=== PATIENT | male | born 1940 | race Caucasian/White ===

== ENCOUNTER 2019-09-27 18:47 | Inpatient (IN) | payer OTHER ==
[~2019-09-27] VITALS: Ht 160 cm; Wt 63.5 kg
[2019-09-27] MEDS: NACL 0.9% 1,000 ML IV SCH (01:30)
--- NOTE | 2019-09-27 18:49 | NUR ---
Pt placed in bed 8 by EMS.
[2019-09-27] MEDS ORDERED: NACL 0.9% 500 ML IV SCH (19:07)
--- NOTE | 2019-09-27 19:10 | NUR ---
Dr. Hartman examining patient.
[2019-09-27] MEDS ORDERED: ACETAMINOPHEN 650 MG SUPP RC ONE ×2 (19:15→19:17)
--- NOTE | 2019-09-27 19:39 | NUR ---
79 Y.O MALE BIBA W C/O GEN WEAKNESS & LOSS OF APPETITE X3 DAYS FROM [facility]. PATIENT IS A/OX2 AND AND RESPONSIVE TO VOICE. PERRLA +2. PATIENT STATES THAT HE HAS NO PAIN AT THIS TIME. BREATHING IS UNLABORED AND SYMMETRICAL. WILL CONTINUE TO TO MONITOR. PLACED ON MONITOR. SIDE RAILSX1. ERMD MADE AWARE OF STATUS HX: DEMENTIA RX: SEE MED REC
[2019-09-27 19:48] LABS: HEMOGLOBIN 9.5 g/dL (12.0-18.0); MEAN CORPUSCULAR HEMOGLOBIN 27 pg (27-31); MEAN CORPUSCULAR HGB CONC 31 g/dL (33-37); MEAN CORPUSCULAR VOLUME 88.4 fL (80-94); PLATELET COUNT (AUTO) 374 K/uL (140-450); WHITE BLOOD COUNT (AUTO) 23.1 K/uL (4.8-10.8)
[2019-09-27 20:04] LABS: PROTHROMBIN TIME 14.4 secs (10.8-13.4)
[2019-09-27 20:07] LABS: ALBUMIN 1.3 g/dL (3.4-5.0); ASPARTATE AMINOTRANSFERASE 28 U/L (15-37); CHLORIDE 107 mmol/L (98-107); GLUCOSE 89 mg/dL (74-106); SODIUM SERUM 141 mmol/L (136-145); UREA NITROGEN, BLOOD 14 mg/dL (7-18)
[2019-09-27] MEDS ORDERED: POTASSIUM CHLORIDE 20% 40 MEQ/15 ML UDC PO ONE (20:20)
[2019-09-27] MEDS ORDERED: PIPERACILLIN/TAZOBACTAM 3.375 GM in DEXTROSE 5% 50 ML IV ONE (20:20)
[2019-09-27 20:36] LABS: BASOPHILS % (MANUAL) 0 % (0-2); EOSINOPHILS % (MANUAL) 0 % (0-4); LYMPHOCYTES % (MANUAL) 4 % (20-46); MONOCYTES % (MANUAL) 6 % (5-12)
[2019-09-27] MEDS ORDERED: PIPERACILLIN/TAZOBACTAM 3.375 GM VIAL IV ONE (20:37)
[2019-09-27] MEDS ORDERED: LEVOFLOXACIN 500 MG/D5W PREMIX 100 ML IV ONE (20:40)
[2019-09-27 21:25] LABS: BILIRUBIN,URINE 1+ (NEGATIVE); BLOOD, URINE NEGATIVE (NEGATIVE); LEUKOCYTE ESTERASE ,URINE NEGATIVE (NEGATIVE); NITRITE, URINE NEGATIVE (NEGATIVE); UGLUCOSE NEGATIVE (NEGATIVE)
[2019-09-27 21:47] LABS: APPEARANCE,URINE CLEAR (CLEAR); COLOR,URINE AMBER (YELLOW)
[2019-09-27] MEDS ORDERED: BISA5TAB79 PO (22:46)
[2019-09-27] MEDS ORDERED: ACET-2619 PO (22:47)
--- NOTE | 2019-09-27 22:52 | NUR ---
SPOKE WITH SON JASIEL; UPDATED HIM OF PT,'S CONDITION. PH# [phone].
--- NOTE | 2019-09-27 23:00 | NUR ---
Patient will be admitted to care of [facility] . Admited to TELE. Will go to room 108 B. Belongings list completed. Report to .
[2019-09-27 23:30] VITALS: BP 101/53
--- NOTE | 2019-09-27 23:30 | NUR ---
REPORT RECEIVED FROM ED NURSE AT BEDSIDE. PT IN STABLE CONDITION. AAOX1-2. INTRODUCED SELF TO PT. BOARD UPDATED. NO COMPLAINTS OF PAIN. NO SOB. AFEBRILE. PT IS NON-AMBULATORY. MRSA COLLECTED. IV SITE L HAND 22G RUNNING NS BOLUS PATENT AND INTACT. SKIN WARM, DRY, AND INTACT WITH NO OPEN WOUNDS. BED LOCKED IN LOW POSITION. CALL GAMBLE WITHIN REACH. SAFETY PRECAUTION IN PLACE. ALL NEEDS MET AT THIS TIME.
[2019-09-27] MEDS ORDERED: LORazepam 2 MG/ML VIAL IM/IVP PRN (23:45)
[2019-09-27] MEDS ORDERED: ACETAMINOPHEN 325 MG TAB PO PRN (23:45)
[2019-09-27] MEDS ORDERED: ONDANSETRON 4 MG/2 ML VIAL IM/IVP PRN (23:45)
[2019-09-27] MEDS ORDERED: HYDROcodone/APAP 5/325 MG 1 TAB TAB PO PRN (23:45)
[2019-09-27] MEDS ORDERED: ZOLPIDEM 5 MG TAB PO PRN (23:45)
[2019-09-27] MEDS ORDERED: DOCUSATE SODIUM 100 MG GELCAP PO PRN (23:45)
[2019-09-28] VITALS: BP 107/61
[2019-09-28 00:17] LABS: CHOL/HDL RATIO 3.9 (1-4.5); PHOSPHORUS 3.7 mg/dL (2.5-4.9); THYROID STIMULATING HORMONE 2.3 uIU/mL (0.34-3.74)
--- NOTE | 2019-09-28 00:30 | NUR ---
PT SITTING IN BED. NO S/S OF DISTRESS NOTED. WILL CONTINUE TO MONITOR.
[2019-09-28] MEDS: NACL 0.9% 1,000 ML IV SCH ×2 (01:27→16:23)
--- NOTE | 2019-09-28 02:30 | NUR ---
PT SLEEPING COMFORTABLY BUT AROUSABLE. PT CONFUSED AND CONTINUOUSLY REMOVES TELE BOX. WILL TRY TO KEEP IT ON HIM. WILL CONTINUE TO MONITOR.
[2019-09-28] MEDS ORDERED: INSULIN LISPRO SLIDING SCALE 100 UNITS/ML VIAL SUBQ PRN (03:00)
[2019-09-28] MEDS ORDERED: DEXTROSE 50% 50 ML SYR IVP PRN (03:00)
--- NOTE | 2019-09-28 03:35 | NUR ---
PT SLEEPING COMFORTABLY BUT AROUSABLE. NO S/S OF DISTRESS NOTED. NO COMPLAINTS OF PAIN. NO SOB. AFEBRILE. WILL CONTINUE TO MONITOR.
[2019-09-28 04:00] VITALS: BP 108/51
[2019-09-28] MEDS ORDERED: PIPERACILLIN/TAZOBACTAM 3.375 GM VIAL IV ONE (05:36)
[2019-09-28] MEDS: PIPERACILLIN/TAZOBACTAM 3.375 GM in DEXTROSE 5% 50 ML IV SCH ×4 (05:59→23:17)
[2019-09-28] MEDS: BLOOD GLUCOSE MONITORING 1 DEV DEV FS SCH ×4 (05:59→20:23)
--- NOTE | 2019-09-28 05:59 | NUR ---
POTASSIUM GIVEN PO. ZOSYN HUNG AND RUNNING. PT TOLERATING WELL. BS 65. NO INSULIN COVERAGE NEEDED. JUICE GIVEN TO INCREASE BLOOD SUGAR.
[2019-09-28] MEDS ORDERED: POTASSIUM CHLORIDE 10 MEQ TABER PO SCH (06:00)
--- NOTE | 2019-09-28 06:25 | NUR ---
PT SLEEPING COMFORTABLY BUT AROUSABLE. NO S/S OF DISTRESS NOTED. PT IN STABLE CONDITION.
[2019-09-28 06:43] LABS: BASOPHILS # (AUTO) 0.1 K/uL (0.00-0.22); BASOPHILS % (AUTO) 0.2 % (0.0-2.0); EOSINOPHILS % (AUTO) 0.1 % (0.0-4.0); HEMATOCRIT 29.8 % (36-52); HEMOGLOBIN 8.8 g/dL (12.0-18.0); LYMPHOCYTES # (AUTO) 0.5 K/uL (2.0-11.5); MEAN CORPUSCULAR HEMOGLOBIN 27 pg (27-31); MEAN CORPUSCULAR HGB CONC 30 g/dL (33-37); MEAN CORPUSCULAR VOLUME 89.3 fL (80-94); MONOCYTES # (AUTO) 1.3 K/uL (0.8-1.0); MONOCYTES % (AUTO) 5.5 % (1.7-9.3); NEUTROPHILS # (AUTO) 20.9 K/uL (1.8-7.7); NEUTROPHILS % (AUTO) 92.2 % (42.2-75.2); PLATELET COUNT (AUTO) 343 K/uL (140-450); RED BLOOD CELL COUNT(AUTO) 3.34 MIL/uL (4.20-6.10); RED CELL DISTRIBUTION WIDTH 18.1 % (11.6-13.7); WHITE BLOOD COUNT (AUTO) 22.7 K/uL (4.8-10.8)
[2019-09-28 07:14] LABS: ANION GAP 12.6 (8-16); CARBON DIOXIDE 24.8 mmol/L (21-32); CHLORIDE 109 mmol/L (98-107); CREATININE 0.8 mg/dL (0.7-1.3); GLUCOSE 85 mg/dL (74-106); POTASSIUM 3.4 mmol/L (3.5-5.1); SODIUM SERUM 143 mmol/L (136-145); UREA NITROGEN, BLOOD 13 mg/dL (7-18)
--- NOTE | 2019-09-28 07:30 | NUR ---
Received report from head silverman nurse. Pt is in bed in stable condition. Call light in reach.
[2019-09-28 08:00] VITALS: BP 112/62
--- NOTE | 2019-09-28 08:00 | NUR ---
PATIENT HAS BEEN SCREENED AND CATEGORIZED HIGH NUTRITION RISK. PATIENT WILL BE SEEN WITHIN 1-2 DAYS OF ADMISSION. 09/28/19-09/29/[address]
--- NOTE | 2019-09-28 08:30 | NUR ---
Pt removed IV line. On assessment IV catheter intact. No active signs of bleeding. Pt lying in bed. Bed alarm in place.
--- NOTE | 2019-09-28 08:55 | NUR ---
SPOKE WITH RENÉE, PICC LINE SERVICE. NADYA-VIV PICC LINE WILL CALL FOR ETA. BRADLY- VIV ASSIGNED MADE AWARE.
[2019-09-28] MEDS ORDERED: BISACODYL 5 MG TABEC PO PRN (09:00)
[2019-09-28] MEDS: LACTOBACILLUS RHAMNOSUS GG 1 EACH CAP PO SCH (09:22)
--- NOTE | 2019-09-28 10:30 | NUR ---
Pt is in bed. Pt's is by bedside. Pt is in stable condition. Call light in reach.
--- NOTE | 2019-09-28 11:30 | NUR ---
Pt had an PICC line inserted to right upper arm. Procedure tolerated well.
[2019-09-28 12:00] VITALS: BP 106/40
--- NOTE | 2019-09-28 12:30 | NUR ---
Pt is in bed resting. Pt is on restrains. Checked restrains. Removed restrain for five minutes to check for circulation and skin assessment. Call light in reach.
--- NOTE | 2019-09-28 12:35 | NUR ---
DC PLANNIN79 Y/O MALE PATIENT FROM ([facility]) ADMITTED DUE TO FAILURE TO THRIVE X3DAYS. 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 ON ROOM AIR. ON ZOSYN AND HEPARIN SUB Q. PICC LINE TO UPPER RIGHT ARM INSERTED TODAY. DC PLAN PENDING ON PATIENT'S RESPONSE TO TREATMENT. Addendum: 09/30/19 at 1132 by Cherelle Martel CM MET WITH THE PATIENT AND HIS AT THE BEDSIDE TOGETHER WITH VIV URIARTE LOGGER ALL ROUND REGARDING TENTATIVE PLAN TO DC PATIENT BACK TO [facility], BOTH ARE AGREEABLE. Addendum: 09/30/19 at 1644 by Cherelle Martel CM CONTACTED MAURICIO YOST AT [phone], NO ANSWER. LEFT MESSAGE. Addendum: 10/03/19 at 1621 by Terri Reeder CM DC PLANNING PER MD ORDER WAITING FOR [facility] TO SEE THE PATIENT. CALLED SHARDA [phone] LEFT A MESSAGE CM TO FOLLOW Addendum: 10/03/19 at 1642 by Terri Reeder CM DC PLANNING RECEIVED A CALL FROM JAQUELIN ARORA WITH [facility] PT CAN GO TO ROOM 121A Chaitanya ROBIN FROM [facility] ON HER WAY TO SEE PT.
--- NOTE | 2019-09-28 13:57 | NUR ---
09/28/19 RD INITIAL ASSESSMENT COMPLETED PLEASE REFER TO NUTRITION ASSESSMENT UNDER CARE ACTIVITY FOR ESTIMATED NUTRITIONAL NEEDS. 1. CONTINUE PUREE DIET TOLERATED 2. RECOMMEND ENSURE TID 3. ENCOURAGE INCREASING PO INTAKE 4. RD TO FOLLOW-UP 2-3 DAYS, HIGH RISK PELON [place], RD
--- NOTE | 2019-09-28 14:00 | NUR ---
Pt is resting in bed. by bedside. Pt is in stable condition. Call light in reach.
[2019-09-28 16:00] VITALS: BP 112/55
--- NOTE | 2019-09-28 16:00 | NUR ---
Pt came back from CT scan. Pt is in bed. Restraints checked. Pt is in stable condition. Call light in reach.
--- NOTE | 2019-09-28 18:00 | NUR ---
Pt is in bed. Pt is in stable condition. Son and pt's by bedside. Call light in reach.
--- NOTE | 2019-09-28 19:30 | NUR ---
Shift report given to night coordinator nurse. Pt is in stable condition. Call light in reach.
--- NOTE | 2019-09-28 19:31 | NUR ---
RECEIVED BEDSIDE REPORT FROM DAY RN. PT IS AAOX1 ALBANIAN SPEAKING. ON RA RESPIRATIONS ARE EQUAL AND UNLABORED.PT WITH MOE PICC LINE INSERTED TODAY IVF PER ORDERS. PT IS ON SOFT WRIST RESTRAINTS D/T ALOC REMOVING LINES AND TRYING TO GET OUT OF BED. ORIENTED PT TO ROOM AND STAFF. BED ALARM IS ON. CHECK RESTRAINTS CIRCULATION, CAP REFILL < 3 SEC. SKIN IS INTACT. R ARM HAS SCAB. POC DISCUSSED WITH PT. CALL LIGHT IS WITHIN REACH. WILL ROUND FREQUENTLY.
[2019-09-28 20:00] VITALS: BP 109/55
--- NOTE | 2019-09-28 20:19 | NUR ---
VSS. ROGELIO MEDICATION GIVEN PER ORDERS. BG 80 SNACK AT BEDSIDE. PT REFUSED TO EAT. TOOK A FEW SIPS OF APPLE JUICE. WILL ATTEMPT LATER. SAFETY MEASURES ARE IN PLACE. WILL CONTINUE TO MONITOR.
[2019-09-28] MEDS ORDERED: LEVOFLOXACIN 500 MG/D5W PREMIX 100 ML IV SCH (21:00)
--- NOTE | 2019-09-28 22:26 | NUR ---
MD ARIZMENDI AND SANDRA IN TO SEE PT. PER CONTINUE PT ON ZOSYN. PT IS RESTING COMFORTABLY IN BED. SAFETY MEASURES ARE IN PLACE.
[2019-09-29] VITALS: BP 112/51
--- NOTE | 2019-09-29 | NUR ---
VITAL SIGNS ARE WITHIN NORMAL LIMITS. PT IS SLEEPING COMFORTABLY IN BED. NO S/S OF DISTRESS. RESTRAINTS CHECK. SAFETY MEASURES ARE IN PLACE.
--- NOTE | 2019-09-29 02:00 | NUR ---
PATIENT IS SLEEPING COMFORTABLY IN BED. CHEST RISE AND FALL. PT REMAINS ON SOFT WRIST RESTRAINTS. SAFETY MEASURES ARE N PLACE. WILL CONTINUE TO MONITOR.
[2019-09-29 04:00] VITALS: BP 114/55
--- NOTE | 2019-09-29 04:01 | NUR ---
VITAL SIGNS ARE WITHIN NORMAL LIMITS. PT REMAINS AAOX1. COMPLAIN OF PAIN IN ABDOMEN. GAVE PRN NORCO. SAFETY MEASURES ARE IN PLACE. WILL CONTINUE TO MONITOR.
[2019-09-29] MEDS: PIPERACILLIN/TAZOBACTAM 3.375 GM in DEXTROSE 5% 50 ML IV SCH ×3 (05:05→19:19)
--- NOTE | 2019-09-29 05:05 | NUR ---
ZOSYN NOW INFUSING PER ORDERS. ALL SAFETY MEASURES ARE IN PLACE. WILL CONTINUE TO MONITOR
[2019-09-29] MEDS: BLOOD GLUCOSE MONITORING 1 DEV DEV FS SCH ×4 (05:42→20:04)
--- NOTE | 2019-09-29 06:37 | NUR ---
PATIENT TRANSFERRED TO MED/SURG. TELE BOX REMOVED.
[2019-09-29 07:11] LABS: BASOPHILS # (AUTO) 0.1 K/uL (0.00-0.22); BASOPHILS % (AUTO) 0.3 % (0.0-2.0); EOSINOPHILS % (AUTO) 0.1 % (0.0-4.0); HEMATOCRIT 25.3 % (36-52); HEMOGLOBIN 7.8 g/dL (12.0-18.0); LYMPHOCYTES # (AUTO) 0.4 K/uL (2.0-11.5); LYMPHOCYTES % (AUTO) 1.7 % (20.5-51.1); MEAN CORPUSCULAR HEMOGLOBIN 27 pg (27-31); MEAN CORPUSCULAR HGB CONC 31 g/dL (33-37); MEAN CORPUSCULAR VOLUME 89.1 fL (80-94); MONOCYTES # (AUTO) 1.3 K/uL (0.8-1.0); MONOCYTES % (AUTO) 5.8 % (1.7-9.3); NEUTROPHILS # (AUTO) 19.8 K/uL (1.8-7.7); NEUTROPHILS % (AUTO) 92.1 % (42.2-75.2); PLATELET COUNT (AUTO) 272 K/uL (140-450); RED BLOOD CELL COUNT(AUTO) 2.84 MIL/uL (4.20-6.10); WHITE BLOOD COUNT (AUTO) 21.5 K/uL (4.8-10.8)
[2019-09-29 07:19] LABS: PHOSPHORUS 3.4 mg/dL (2.5-4.9)
--- NOTE | 2019-09-29 07:19 | NUR ---
GAVE BEDSIDE REPORT TO DAY RN. PT ENDORSED IN STABLE CONDITION.
--- NOTE | 2019-09-29 07:20 | NUR ---
RECEIVED REPORT FROM DIALYSIS TECHNICIAN NURSE. PATIENT IS SLEEPING AT THIS TIME. NO RESPIRATORY DISTRESS NOTED. ON RA. PATIENT IS BEDBOUND. FALL RISK PROTOCOL IN PLACE. BILATERAL WRIST RESTRAINTS. NO SIGNS OF INJURY. PATIENT ATTEMPTS TO REMOVE LINE. RIGHT UPPER ARM DOUBLE LUMEN, PICC LINE INFUSING NS AT 60 ML/HR. CLEAN, DRY, AND INTACT. INCONTINENT. BED IN LOW POSITION. CALL LIGHT WITHIN REACH.
[2019-09-29 07:42] LABS: SODIUM SERUM 142 mmol/L (136-145)
[2019-09-29 07:43] LABS: CHLORIDE 110 mmol/L (98-107); POTASSIUM 2.9 mmol/L (3.5-5.1)
[2019-09-29 07:44] LABS: ANION GAP 10.4 (8-16); CARBON DIOXIDE 24.5 mmol/L (21-32); GLUCOSE 125 mg/dL (74-106); UREA NITROGEN, BLOOD 12 mg/dL (7-18)
[2019-09-29 08:00] VITALS: BP 108/46
[2019-09-29 08:07] LABS: FOLIC ACID 3.5 ng/mL (>3.0)
[2019-09-29] MEDS ORDERED: POTASSIUM CHLORIDE 10 MEQ TABER PO SCH (08:15)
[2019-09-29] MEDS ORDERED: KCL 20 MEQ/WATER INJ PREMIX 200 ML IV SCH (08:15)
--- NOTE | 2019-09-29 08:18 | NUR ---
SPOKE TO PATIENTS HERMANN JASON AT [phone]. USED [employer] HIGH DENSITY TALC COATER OPERATOR NAME ANSON, WORKFORCE DEVELOPMENT SPECIALIST NUMBER [id number]. AT THIS TIME IS REFUSING TO CONSENT. PROCEDURE IS EXPLAINED TO HER BUT PATIENT STATES SHE WILL COME TO THE HOSPITAL SOON TO SPEAK ABOUT THE PROCEDURE. DR GONZALEZ IS MADE AWARE.
[2019-09-29] MEDS: LACTOBACILLUS RHAMNOSUS GG 1 EACH CAP PO SCH (08:58)
[2019-09-29] MEDS: ASCORBIC ACID 500 MG TAB PO SCH (08:59)
[2019-09-29] MEDS: FERROUS SULFATE 325 MG TABEC PO SCH ×2 (08:59→16:05)
[2019-09-29] MEDS: NACL 0.9% 1,000 ML IV SCH (09:03)
--- NOTE | 2019-09-29 09:20 | NUR ---
ADMINISTERED MEDICATIONS. EDUCATED ON MEDICATION PURPOSE AND SIDE EFFECTS. PT. TOLERATED WELL.
--- NOTE | 2019-09-29 11:30 | NUR ---
CONSENTED TO DO LUMBAR PUNCTURE. DR GONZALEZ AND I EXPLAINED THE PROCEDURE USING [employer]. MACHINE CLEANER NAME PAWAN MACHINE CLEANER NUMBER [id number]
[2019-09-29] MEDS ORDERED: LORazepam 2 MG/ML VIAL IM/IVP SCH (11:40)
[2019-09-29] MEDS ORDERED: LORazepam 2 MG/ML VIAL IVP SCH (11:40)
--- NOTE | 2019-09-29 12:41 | NUR ---
ADMINISTERED MEDS. PATIENT TOLERATED WELL. WILL CONTINUE TO MONITOR THE PATIENT
--- NOTE | 2019-09-29 13:40 | NUR ---
ATIVAN 1 MG WAS GIVEN VIA IV PUSH PER DR. GONZALEZ'S ORDER TO PT PRIOR TO STARTING THE PROCEDURE FOR LUMBAR PUNCTURE, PARAMETER CHECKED, PT TOLERATED AND FELL ASLEEP, NO SIGN OF DISTRESS NOTED AND WILL MONITOR PT.
--- NOTE | 2019-09-29 13:48 | NUR ---
LUMBAR PUNCTURE NOW BEING DONE BY DR. GONZALEZ AND GREER PANDA. ASSISTED BY MEDICAL STUDENTS AND DR. HYDE. TIME OUT VERIFIED. NO SIGNS OF DISTRESS NOTED ON THE PT. WILL CONTINUE TO MONITOR.
[2019-09-29 14:00] VITALS: BP 96/50
[2019-09-29] MEDS ORDERED: LIDOCAINE 2% 1000 MG/50 ML VIAL INJ SCH (14:00)
--- NOTE | 2019-09-29 14:45 | NUR ---
ADMINISTERED SECOND BAG OF POTASSIUM. PATIENT TOLERATING WELL. WILL CONTINUE TO MONITOR THE PATIENT.
--- NOTE | 2019-09-29 14:50 | NUR ---
POST ATIVAN VITAL SIGNS. BP 112/43. RESPIRATIONS 15, EVEN AND UNLABORED. HR 76BPM. O2SAT 98% RA. TEMP. 97.9 TEMPORAL. PATIENT IS SLEEPING AT THIS TIME. CALL LIGHT WITHIN REACH. BED IN LOW POSITION.
[2019-09-29] MEDS: SODIUM FERRIC GLUCONATE 125 MG in NACL 0.9% 100 ML IV SCH (16:05)
--- NOTE | 2019-09-29 16:06 | NUR ---
ADMINISTERED MEDICATIONS. EDUCATED PATIENT ON MEDICATION PURPOSE AND SIDE EFFECTS. PATIENT TOLERATED WELL. BED IN LOW POSITION. CALL LIGHT WITHIN REACH. WILL CONTINUE TO MONITOR.
--- NOTE | 2019-09-29 18:00 | NUR ---
PATIENT RESTING IN BED. NO SIGNS OF DISTRESS
--- NOTE | 2019-09-29 19:20 | NUR ---
gave bedside report to operations supervisor 2nd shift nurse. PATIENT ENDORSED IN STABLE CONDITION. ENDORSED TO NURSE TO GET CONSENT FOR LUMBAR PUNCTURE W IR WHEN ARRIVES
--- NOTE | 2019-09-29 19:21 | NUR ---
RECEIVED BEDSIDE REPORT FROM DAY RN. PT IS AAOX1 AFGHAN SPEAKING. ON RA RESPIRATIONS ARE EQUAL AND UNLABORED.PT WITH MOE PICC LINE INSERTED ON 09/28 DRESSING IS C/D/I. IVF PER ORDERS. K-RIDER COMPLETE LAB NOTIFIED FOR CHEM DRAW. PT IS ON SOFT WRIST RESTRAINTS D/T ALOC REMOVING LINES AND TRYING TO GET OUT OF BED. ORIENTED PT TO ROOM AND STAFF. BED ALARM IS ON. CHECK RESTRAINTS CIRCULATION, CAP REFILL < 3 SEC. SKIN IS INTACT. R ARM HAS SCAB. POC DISCUSSED WITH PT. CALL LIGHT IS WITHIN REACH. WILL ROUND FREQUENTLY.
--- NOTE | 2019-09-29 20:15 | NUR ---
PT IS AROUSABLE TO NAME. AAOX1. BLOOD SUGAR 131 NO COVERAGE NEEDED. RGOELIO HEPARIN GIVEN PER ORDERS. PT TOLERATED WELL. ALL NEEDS MET AT THIS TIME. CALL LIGHT IS WITHIN REACH. BED ALARM ON. WILL ROUND FREQUENTLY.
[2019-09-29 20:25] LABS: ANION GAP 11.2 (8-16); CARBON DIOXIDE 23.9 mmol/L (21-32); CHLORIDE 111 mmol/L (98-107); GLUCOSE 142 mg/dL (74-106); POTASSIUM 4.1 mmol/L (3.5-5.1); SODIUM SERUM 142 mmol/L (136-145); UREA NITROGEN, BLOOD 14 mg/dL (7-18)
--- NOTE | 2019-09-29 22:26 | NUR ---
PATIENT IS SLEEPING COMFORTABLY IN BED. CHEST RISE AND FALL. ASSESS RESTRAINTS NO S/S OF IMPAIRED CIRCULATION. SAFETY MEASURES ARE IN PLACE. CALL LIGHT IS WITHIN REACH.
[2019-09-30] VITALS: BP 125/53
--- NOTE | 2019-09-30 | NUR ---
VITAL SIGNS ARE WITHIN NORMAL LIMITS. NO S/S OF DISTRESS. SAFETY MEASURES ARE IN PLACE.
[2019-09-30] MEDS: NACL 0.9% 1,000 ML IV SCH ×2 (00:43→18:23)
[2019-09-30] MEDS: PIPERACILLIN/TAZOBACTAM 3.375 GM in DEXTROSE 5% 50 ML IV SCH ×4 (00:43→17:40)
--- NOTE | 2019-09-30 01:49 | NUR ---
PATIENT IS SLEEPING COMFORTABLY IN BED. CHEST RISE AND FALL. SAFETY MEASURES ARE IN PLACE.
--- NOTE | 2019-09-30 04:00 | NUR ---
PT IS SLEEPING COMFORTABLY IN BED. SAFETY MEASURES ARE IN PLACE.
--- NOTE | 2019-09-30 05:23 | NUR ---
BLOOD SUGAR 73 GAVE PATIENT APPLE JUICE. PT TOLERATED WELL. NO S/S OF DISTRESS
[2019-09-30] MEDS: BLOOD GLUCOSE MONITORING 1 DEV DEV FS SCH ×4 (05:25→20:40)
[2019-09-30 06:04] LABS: HEMATOCRIT 26.9 % (36-52); HEMOGLOBIN 8.2 g/dL (12.0-18.0); MEAN CORPUSCULAR HEMOGLOBIN 27 pg (27-31); MEAN CORPUSCULAR HGB CONC 31 g/dL (33-37); MEAN CORPUSCULAR VOLUME 88.8 fL (80-94); PLATELET COUNT (AUTO) 288 K/uL (140-450); RED BLOOD CELL COUNT(AUTO) 3.03 MIL/uL (4.20-6.10); RED CELL DISTRIBUTION WIDTH 17.8 % (11.6-13.7)
[2019-09-30 06:18] LABS: ANION GAP 12.6 (8-16); CARBON DIOXIDE 22.1 mmol/L (21-32); CHLORIDE 112 mmol/L (98-107); CREATININE 0.9 mg/dL (0.7-1.3); GLUCOSE 90 mg/dL (74-106); POTASSIUM 3.7 mmol/L (3.5-5.1); SODIUM SERUM 143 mmol/L (136-145); UREA NITROGEN, BLOOD 12 mg/dL (7-18)
[2019-09-30] MEDS ORDERED: D50SYR IVP (06:21)
[2019-09-30] MEDS ORDERED: ACET-9525 PO (06:21)
[2019-09-30] MEDS ORDERED: HUMSLIDE SUBQ (06:21)
[2019-09-30] MEDS ORDERED: GLUC-805 FS (06:21)
[2019-09-30] MEDS ORDERED: ONDA2SOL45 IM/IVP (06:21)
[2019-09-30] MEDS ORDERED: DOCU-299 PO (06:21)
[2019-09-30] MEDS ORDERED: ACET-1182 PO (06:21)
[2019-09-30] MEDS ORDERED: FER325 PO (06:21)
[2019-09-30] MEDS ORDERED: VITC500 PO (06:21)
[2019-09-30] MEDS ORDERED: LACT10CA PO (06:21)
[2019-09-30] MEDS ORDERED: HEPA500056 SUBQ (06:21)
[2019-09-30 06:23] LABS: MAGNESIUM 1.8 mg/dL (1.8-2.4); PHOSPHORUS 3.4 mg/dL (2.5-4.9)
[2019-09-30 06:56] LABS: WHITE BLOOD COUNT (AUTO) 25.2 K/uL (4.8-10.8)
[2019-09-30 06:57] LABS: LYMPHOCYTES % (MANUAL) 2 % (20-46); MONOCYTES % (MANUAL) 4 % (5-12)
--- NOTE | 2019-09-30 07:29 | NUR ---
RECEIVED REPORT FROM ENGINEERING INSPECTION ASSISTANT NURSE. PT AWAKE, SHOWS SIGNS OF CONFUSION, PT MUMBLES WHEN SPEAKING, ORIENTED X1 TO NAME. NO C/O PAIN. NOTED RT UA PICC LINE DOUBLE LUMEN, BOTH FLUSHING WITH NO RESISTANCE, RUNNING IVF PER ORDER. RESPIRATIONS EVEN AND UNLABORED ON RA. ABD SOFT, ACTIVE BS, LBM 09/30. PT ON FALL RISK PRECAUTIONS, SAFETY MEASURES IN PLACE, CALL LIGHT WITHIN REACH. REVIEWED POC WITH PT AND FAMILY, VERBALIZED UNDERSTANDING.
--- NOTE | 2019-09-30 07:29 | NUR ---
GAVE BEDSIDE REPORT TO LEO RN. PT ENDORSED IN STABLE CONDITION. SPOKE WITH HERMANN JASON WILL COME IN TO SIGN CONSENT FOR LUMBAR PUNCTURE. PER HERMANN STATES WILL BE HERE AROUND 0900. DAY RN AWARE.
[2019-09-30 08:00] VITALS: BP 120/50
[2019-09-30] MEDS ORDERED: ZOS3.375PM IV (09:06)
[2019-09-30] MEDS: LACTOBACILLUS RHAMNOSUS GG 1 EACH CAP PO SCH (09:07)
[2019-09-30] MEDS: ASCORBIC ACID 500 MG TAB PO SCH (09:07)
[2019-09-30] MEDS: FERROUS SULFATE 325 MG TABEC PO SCH ×3 (09:07→17:45)
--- NOTE | 2019-09-30 09:12 | NUR ---
ADMINISTERED MEDICATIONS PER ORDER, REVIEWED INDICATIONS AND POTENTIAL SIDE EFFECTS. PT UNABLE TO UNDERSTAND. GIVEN MEDICATIONS WITH FOOD. ATTEMPTED MULTIPLE TIMES TO FEED PATIENT, BUT PT REFUSED AFTER 2 SPOONFULS.
--- NOTE | 2019-09-30 09:30 | NUR ---
PT TRANSFERRED TO ROOM 115 D/T ISOLATION PER PROTOCOL.
--- NOTE | 2019-09-30 10:20 | NUR ---
USED [employer] PHONE WRAPPER LAYER DOMENICA/#[id number], NOTIFIED PT'S /HERMANN REGARDING PLANNED PROCEDURE FOR LATER TODAY. DR. HYDE ABLE TO ANSWER PT'S QUESTIONS.
--- NOTE | 2019-09-30 11:00 | NUR ---
DR. SINGH AT BEDSIDE, ANSWERING AND CLARIFYING PT'S 'S/HERMANN QUESTIONS. NOTIFIED THAT BRUISING THAT IS SPREAD OUT ON BILATERAL KNEES ARE NON-FALL RELATED, PT HAS NO INCIDENTS OF FALL DURING HOSPITALIZATION.
[2019-09-30] MEDS ORDERED: LIDOCAINE 2% 1000 MG/50 ML VIAL INJ SCH ×2 (11:55→13:00)
[2019-09-30] MEDS ORDERED: LORazepam 2 MG/ML VIAL IM/IVP SCH ×2 (11:56→13:00)
--- NOTE | 2019-09-30 12:40 | NUR ---
PT TAKEN FOR PROCEDURE. PT HAS NO SIGNS OF DISTRESS AT THIS TIME.
--- NOTE | 2019-09-30 13:49 | NUR ---
09/30/19 RD FOLLOW UP COMPLETED PLEASE REFER TO NUTRITION ASSESSMENT UNDER CARE ACTIVITY FOR ESTIMATED NUTRITIONAL NEEDS. 1. CONTINUE PUREE DIET TOLERATED 2. CONTINUE ENSURE TID 3. ENCOURAGE INCREASING PO INTAKE 4. IF PO INTAKE DOES NOT MEET 50% OF ESTIMATED NEEDS, CONSIDER TUBE FEEDINGS. 5. RD TO FOLLOW-UP 2-3 DAYS, HIGH RISK PELON [place], RD
--- NOTE | 2019-09-30 13:55 | NUR ---
PER RN LARRY, PT WAS OFF RESTRAINTS DURING PROCEDURE. S/P LUMBAR PUNCTURE, KEEP PT FLAT TO PREVENT HEADACHE, FLACC 0 AT THIS TIME. PT ON 4L VIA N/C, O2 SAT 98%, RESPIRATIONS EVEN AND UNLABORED ON RA.
[2019-09-30 14:00] VITALS: BP 107/41
--- NOTE | 2019-09-30 14:00 | NUR ---
NOTED SKIN TEAR TO LT FOREARM. SEE WOUND ASSESSMENT.
--- NOTE | 2019-09-30 15:02 | NUR ---
PT IS SLEEPING, FLACC 0. PT HAS NO SIGNS OF DISTRESS. WILL CONTINUE TO MONITOR.
[2019-09-30] MEDS: SODIUM FERRIC GLUCONATE 125 MG in NACL 0.9% 100 ML IV SCH (15:06)
[2019-09-30 15:15] VITALS: BP 128/57
[2019-09-30 16:00] VITALS: BP 101/45
[2019-09-30 16:07] LABS: CSF GLUCOSE 42 mg/dL (40-70)
[2019-09-30] MEDS: MORPHINE SULFATE 2 MG/ML SYR IVP PRN ×2 (17:46→17:57)
--- NOTE | 2019-09-30 17:53 | NUR ---
ADMINISTERED DEXTROSE 50% PER ORDER FOR BLOOD GLUCOSE 60, DR. MARTÍNEZ NOTIFIED.
--- NOTE | 2019-09-30 18:01 | NUR ---
BLOOD SUGAR CHECKED, CURRENTLY 122, NO S/S OF HYPERGLYCEMIA AT THIS TIME.
--- NOTE | 2019-09-30 19:30 | NUR ---
ENDORSED PT TO SENIOR TELECOMMUNICATIONS ENGINEER NURSE. PT HAS NO SIGNS OF DISTRESS AT THIS TIME. RESPIRATIONS EVEN AND UNLABORED ON RA.
--- NOTE | 2019-09-30 19:31 | NUR ---
RECEIVED REPORT FROM AM SHIFT NURSE. PT AWAKE,ORIENTED TO NAME X 1, CONFUSION NOTED.DOES NOT FOLLOW COMMANDS PT MUMBLES WHEN SPEAKING, NO FACIAL GRIMACING NOTED. NOTED RT UA PICC LINE DOUBLE LUMEN, WITH IVF NS AT 60 ML/HR, PATENT RUNNING IVF PER ORDER. RESPIRATIONS EVEN AND UNLABORED ON RA. LBM 09/30. ADBOMEN SOFT, NO DISTENTION. BOWEL SOUNDS ACTIVE. PT ON FALL RISK PRECAUTIONS, SAFETY MEASURES IN PLACE, CALL LIGHT WITHIN REACH. VERBALIZED UNDERSTANDING.
--- NOTE | 2019-09-30 19:32 | NUR ---
PT FLAT ON BED MAINTAINED X 24 HRS TILL TMRW AT 1300 PER ORDER
[2019-09-30 20:00] VITALS: BP 107/35
--- NOTE | 2019-09-30 22:00 | NUR ---
PATIENT CHG BATH GIVEN. PT TOLERATED PROCEDURE
--- NOTE | 2019-09-30 23:43 | NUR ---
TALKED TO BORIS LINDO: FLU SHOT AND PNA SHOT KERA SAID THAT THEY ARE HAVING COMPUTER PROBLEM; SHE SAID TO CALL BACK AGAIN Addendum: 09/30/19 at 2345 by Lizette Guzmán RN VIV ESCALANTE OUTSOLE LEVELER [facility]
--- NOTE | 2019-10-01 | NUR ---
CHECKED ON PATIENT Q2 POONAM FOR CIRCULATION ON THE RESTRAINTS; 15 MINS RELEASE TIME DONE. NO BLEEDING NO BRUISING. CHECKED FOR TIGHTNESS OF RESTRAINTS AND LOOSENED IT.
[2019-10-01] MEDS: PIPERACILLIN/TAZOBACTAM 3.375 GM in DEXTROSE 5% 50 ML IV SCH ×5 (00:32→23:36)
[2019-10-01] MEDS: NACL 0.9% 1,000 ML IV SCH (02:00)
--- NOTE | 2019-10-01 02:45 | NUR ---
CHECKED ON PT, CHECKED ON CIRCULATION ON THE PT'S WRIST. NO BLEEDING NO BRUISES. KEPT PT FLAT TILL 1 PM TODAY
--- NOTE | 2019-10-01 04:00 | NUR ---
PT CHECKED FOR CIRCULATION, CLEANED PT, OFFLOADED BILATERAL LEGS FOR LOWER EXTREMITIES
[2019-10-01] MEDS: BLOOD GLUCOSE MONITORING 1 DEV DEV FS SCH ×4 (05:31→20:40)
--- NOTE | 2019-10-01 06:50 | NUR ---
PT ASLEEP BUT EASILY AROUSABLE BY NAME ONLY. PT IN STABLE CONDITION. WILL ENDORSE TO NEXT SHIFT
[2019-10-01 07:20] LABS: ANION GAP 12.6 (8-16); CARBON DIOXIDE 23.5 mmol/L (21-32); CHLORIDE 111 mmol/L (98-107); CREATININE 0.9 mg/dL (0.7-1.3); GLUCOSE 137 mg/dL (74-106); POTASSIUM 3.1 mmol/L (3.5-5.1); SODIUM SERUM 144 mmol/L (136-145); UREA NITROGEN, BLOOD 11 mg/dL (7-18)
--- NOTE | 2019-10-01 07:25 | NUR ---
RECEIVED PT FROM THE BUTT TRIMMER NURSE. PT IS SLEEPING. HARD TO AROUSE. NOTED THE PICC LINE ON HIS R UPPER ARM, 2 LUMENS. ONE IS INFUSING NS AT 60ML. TOLERATING WELL. SCAB ON R FA, CLOSED, THERAPIST. R FA, DRESSING OVER SKIN TEAR. MULTIPLE BRUISES ON BUE. ONE SCAR ON R KNEE. OTHERWISE SKIN INTACT. NC ON 2L. WILL CONTINUE TO MONITOR PT.
[2019-10-01 07:29] LABS: MAGNESIUM 1.8 mg/dL (1.8-2.4); PHOSPHORUS 3.7 mg/dL (2.5-4.9)
[2019-10-01 07:31] LABS: MEAN CORPUSCULAR HEMOGLOBIN 27 pg (27-31); MEAN CORPUSCULAR HGB CONC 30 g/dL (33-37); MEAN CORPUSCULAR VOLUME 88.7 fL (80-94); PLATELET COUNT (AUTO) 266 K/uL (140-450); RED BLOOD CELL COUNT(AUTO) 3.23 MIL/uL (4.20-6.10); RED CELL DISTRIBUTION WIDTH 18.2 % (11.6-13.7)
--- NOTE | 2019-10-01 07:55 | NUR ---
CRITICAL LABS. WBC 31.5
[2019-10-01 07:58] LABS: HEMOGLOBIN 8.8 g/dL (12.0-18.0); WHITE BLOOD COUNT (AUTO) 31.5 K/uL (4.8-10.8)
[2019-10-01 07:59] LABS: LYMPHOCYTES % (MANUAL) 3 % (20-46); MONOCYTES % (MANUAL) 2 % (5-12)
[2019-10-01 08:00] VITALS: BP 102/54
[2019-10-01] MEDS ORDERED: POTASSIUM CHLORIDE 40 MEQ, LIDOCAINE 1% 25 MG in NACL 0.9% 250 ML IV SCH (09:00)
[2019-10-01] MEDS: FERROUS SULFATE 325 MG TABEC PO SCH ×2 (09:37→17:33)
[2019-10-01] MEDS: LACTOBACILLUS RHAMNOSUS GG 1 EACH CAP PO SCH (09:37)
[2019-10-01] MEDS: ASCORBIC ACID 500 MG TAB PO SCH (09:37)
--- NOTE | 2019-10-01 09:40 | NUR ---
ADMINISTERED MORNING MEDS, CRUSHED IN APPLE SAUCE. HAD TO REALLY WAKE UP PT TO FEED IT TO PT. PT REFUSED BREAKFAST.
--- NOTE | 2019-10-01 09:41 | NUR ---
ADMINISTERED POTASSIUM W/ LIDOCAINE. PT'S K LEVEL AT 3.1. PT TOLERATING WELL. WILL CONTINUE TO MONITOR PT.
--- NOTE | 2019-10-01 11:20 | NUR ---
STOPPED POTASSIUM FOR NOW, ADMINISTERED ZOSYN. WILL RESUME POTASSIUM LATER.
--- NOTE | 2019-10-01 11:30 | NUR ---
BS AT 70. NO INSULIN COVERAGE NEEDED. WILL CONTINUE TO MONITOR PT.
--- NOTE | 2019-10-01 13:10 | NUR ---
RADIOLOGY HERE TO DO THE US OF KIDNEY AND DOPPLER. PT WOULD NOT ALLOW THE TECH TO DO THE TEST. NOTIFIED .
[2019-10-01 13:46] LABS: CSF PROTEIN 158 mg/dL (15-45)
[2019-10-01] MEDS: SODIUM FERRIC GLUCONATE 125 MG in NACL 0.9% 100 ML IV SCH (14:18)
--- NOTE | 2019-10-01 14:19 | NUR ---
HEM/ONC MD CAME AND ASSESSED PT. IS AT BEDSIDE. PT MAY NEED A BIOPSY OF THE INGUINAL LYMPH NODE. EVEN IF THE PT IS POSITIVE FOR CANCER, PT IS NOT A GOOD CANDIDATE FOR CHEMOTHERAPY. MD EXPLAINED TO SPOUSE. SPOUSE AWARE. PT IS STILL IN AND OUT. LETHARGIC. HAD SHAKE AND SOME JUICE. NOTHING MORE. ADMINISTERED FERRIC GLUCONATE. WILL CONTINUE THE POTASSIUM LATER. WILL CONTINUE TO MONITOR PT.
--- NOTE | 2019-10-01 14:29 | NUR ---
MENINGITIS TEST CAME BACK NEGATIVE. NO LONGER DROPLET PRECAUTION. TOOK OFF SIGN. NOTIFIED .
[2019-10-01 16:00] VITALS: BP 129/50
--- NOTE | 2019-10-01 16:29 | NUR ---
VS: 98.1 129/50 104 24 96%ON 2L O2. NOTIFIED DR MOHAN. POSSIBLE SEPSIS PROTOCOL? IS ASSESSING PT. NO NEW ORDERS.
--- NOTE | 2019-10-01 17:38 | NUR ---
SCHEDULED IRON TAB GIVEN WITH APPLE SAUCE, PT MUSA WELL.
--- NOTE | 2019-10-01 19:26 | NUR ---
BEDSIDE REPORT GIVEN TO MOLDER CLOSED MOLDS NURSE ARASELI BETANCOURT AT BEDSIDE ASSISTING FEEDING.
--- NOTE | 2019-10-01 19:27 | NUR ---
RECEIVED PT ON BED, AAOX1, CONFUSED, UNABLE TO FOLLOW COMMANDS, ON ELEANOR SOFT WRIST RESTRAINTS, NO SIGNS OF PAIN, IVF INFUSING WELL VIA RT UA PICC LINE 2 LUMEN, ON O2 AT 2L NC, NO SOB NOTED, SAFETY MEASURES IN PLACE, SIDE RAILS UP AND BED ALARM ON, WILL DO FREQUENT ROUNDS.
--- NOTE | 2019-10-01 20:40 | NUR ---
BLOOD SUGAR CHECKED WITH 95 RESULT, DUE HEPARIN ADMINISTERED SUB-Q, PROGRAM MANAGEMENT MANAGERJames SYED TRIED FEEDING PT WITH DINNER, PT HAD FAIR APPETITE, HAD A FEW SPOONS OF PUDDING AND ICE CREAM, ALL NEEDS ATTENDED.
--- NOTE | 2019-10-01 21:50 | NUR ---
PT INCONTINENT OF URINE, PERINEAL CARE DONE, REPOSITIONED AND OFFLOAD PRESSURE AREAS, MONITORED CLOSELY.
[2019-10-02] VITALS: BP 125/65
--- NOTE | 2019-10-02 | NUR ---
PT SLEEPING, EASILY AROUSABLE TO TOUCH, VITAL SIGNS STABLE, FLACC-0, NO SOB NOTED, IVF INFUSING WELL, ON ELEANOR SOFT WRIST RESTRAINTS, CONTINUE TO MONITOR CLOSELY.
--- NOTE | 2019-10-02 02:10 | NUR ---
PT ABLE TO GET OFF RESTRAINT ON HIS RT WRIST, EDUCATION PROVIDED BUT PT UNABLE TO COMPREHEND, PUT BACK ON RESTRAINTS, MONITORED CLOSELY.
[2019-10-02] MEDS: NACL 0.9% 1,000 ML IV SCH ×2 (04:04→23:46)
[2019-10-02] MEDS: PIPERACILLIN/TAZOBACTAM 3.375 GM in DEXTROSE 5% 50 ML IV SCH ×4 (05:18→23:46)
--- NOTE | 2019-10-02 05:45 | NUR ---
AM LABS DRAWN VIA PICC LINE WITH GOOD BLOOD RETURN, BLOOD SUGAR CHECKED WITH 90 RESULT, IVF INFUSING WELL, MONITORED CLOSELY.
[2019-10-02] MEDS: BLOOD GLUCOSE MONITORING 1 DEV DEV FS SCH ×4 (06:35→21:11)
[2019-10-02 06:54] LABS: CHLORIDE 115 mmol/L (98-107); CREATININE 0.9 mg/dL (0.7-1.3); GLUCOSE 95 mg/dL (74-106); SODIUM SERUM 147 mmol/L (136-145); UREA NITROGEN, BLOOD 10 mg/dL (7-18)
[2019-10-02 06:57] LABS: MAGNESIUM 1.9 mg/dL (1.8-2.4); PHOSPHORUS 3.7 mg/dL (2.5-4.9)
[2019-10-02 07:03] LABS: HEMATOCRIT 27.9 % (36-52); HEMOGLOBIN 8.4 g/dL (12.0-18.0); MEAN CORPUSCULAR HEMOGLOBIN 27 pg (27-31); MEAN CORPUSCULAR HGB CONC 30 g/dL (33-37); PLATELET COUNT (AUTO) 241 K/uL (140-450); RED BLOOD CELL COUNT(AUTO) 3.13 MIL/uL (4.20-6.10); RED CELL DISTRIBUTION WIDTH 17.8 % (11.6-13.7)
--- NOTE | 2019-10-02 07:20 | NUR ---
PT SLEEPING, NO SIGNS OF DISTRESS, REPORT GIVEN TO VIV LOERA FOR CONTINUITY OF CARE.
--- NOTE | 2019-10-02 07:36 | NUR ---
RECEIVED BEDSIDE REPORT FROM PM RN PT APPEARS STABLE AND IN NO APPARENT DISTRESS. ALL SAFETY MEASURES ARE IN PLACE WILL CONTINUE TO MONITOR
--- NOTE | 2019-10-02 07:37 | NUR ---
RECEIVED BEDSIDE REPORT FROM PM RN PT APPEARS STABLE AND IN NO APPARENT DISTRESS. ALL SAFETY MEASURES ARE IN PLACE WILL CONTINUE TO MONITOR
[2019-10-02 08:00] LABS: WHITE BLOOD COUNT (AUTO) 33.4 K/uL (4.8-10.8)
[2019-10-02 08:01] LABS: LYMPHOCYTES % (MANUAL) 2 % (20-46); MONOCYTES % (MANUAL) 2 % (5-12)
[2019-10-02 08:30] VITALS: BP 100/56
[2019-10-02] MEDS: FERROUS SULFATE 325 MG TABEC PO SCH ×2 (08:58→17:00)
[2019-10-02] MEDS: LACTOBACILLUS RHAMNOSUS GG 1 EACH CAP PO SCH (08:58)
[2019-10-02] MEDS: ASCORBIC ACID 500 MG TAB PO SCH (08:59)
[2019-10-02] MEDS ORDERED: POTASSIUM CHLORIDE 40 MEQ, LIDOCAINE MPF 1% 25 MG in NACL 0.9% 250 ML IV ONE ×2 (09:00→11:10)
--- NOTE | 2019-10-02 09:34 | NUR ---
FREQUENT ROUNDING ON PT PT APPEARS STABLE AND IN NO APPARENT DISTRESS. ALL SAFETY MEASURES ARE IN PLACE PT ON BILATERAL UPPER EXTREMITY SOFT WRIST RESTRAINTS. REMOVED RESTRAINTS PROVIDED WATER AND FOOD AND ASSESSED PT FOR CIRCULATION AND SKIN INTEGRITY. WILL CONTINUE TO MONITOR
--- NOTE | 2019-10-02 11:00 | NUR ---
SPOKE TO DR. WEATHERS VIA PHONE HE STATED THAT HE WANTS TO DO A BIOPSY OF THE LYMPH NODES TOMORROW 10/03 AND TO OBTAIN CONSENT AND TO PLACE PT NPO AFTER MIDNIGHT 10/02. UPDATED DR. STEVENS PT ATTENDING PHYSICIAN
--- NOTE | 2019-10-02 11:42 | NUR ---
FINGERSTICK GLUCOSE 96. NO COVERAGE NEEDED PT APPEARS STABLE AND IN NO APPARENT DISTRESS. ALL SAFETY MEASURES ARE IN PLACE WILL CONTINUE TO MONITOR
--- NOTE | 2019-10-02 13:27 | NUR ---
ADMINISTERED ZOSYN AT THIS TIME HAD TO WAIT FOR KRIDER TO COMPLETE. ONCE ZOSYN IS COMPLETE WILL HANG 1100 KRIDER
--- NOTE | 2019-10-02 15:01 | NUR ---
DAYRON FINISHED INFUSING HUNG SECOND K RIDER
--- NOTE | 2019-10-02 16:05 | NUR ---
spoke with pt son about the consent for surgery tomorrow pt stated he wanted to speak with his mother and brothers. pt called me back to inform me that him and his family have come to a conclusion that they want to not go through with the surgery and to consider hospice. pt son modest[place] spoke with dr. chase. dr. chase stated they will have hospice come evaluate the patient tomorrow.
[2019-10-02 16:49] VITALS: BP 132/67
--- NOTE | 2019-10-02 17:42 | NUR ---
FREQUENT ROUNDING ON PT PT APPEARS STABLE AND IN NO APPARENT DISTRESS. ALL SAFETY MEASURES ARE IN PLACE WILL CONTINUE TO MONITOR
[2019-10-02] MEDS ORDERED: VANCOMYCIN PER PHARMACY MC PRN (19:25)
--- NOTE | 2019-10-02 19:40 | NUR ---
ENDORSED PT TO PM RN PT APPEARS STABLE AND IN NO APPARENT DISTRESS. ALL SAFETY MEASURES ARE IN PLACE
--- NOTE | 2019-10-02 19:41 | NUR ---
RECEIVED BEDSIDE REPORT FROM DAY SHIFT NURSE LUZ MARIA RN, PT STABLE, NO DISTRESS NOTED, CENTRAL LINE TO MOE PATENT, INTACT, INFUSING WELL, PT ON 2LPM O2 VIA NC, NO SOB NOTED, INITIAL ASSESSMENT DONE, ALL SAFETY PRECAUTION MET, CALL LIGHT WITHIN REACH, FAMILY AT BEDSIDE, WILL CONTINUE TO MONITOR.
--- NOTE | 2019-10-02 19:48 | NUR ---
STRAIGHT CATH DONE, 100ML URINE COLLECTED, PT TOLERATED WELL, NO DISTRESS NOTED, URINE COLLECTED SENT TO LAB.
[2019-10-02] MEDS ORDERED: VANCOMYCIN 1GM/DEXT 5% PREMIX 200 ML IV ONE (20:00)
[2019-10-02] MEDS ORDERED: VANCOMYCIN 1,000 MG VIAL ONE (20:09)
[2019-10-02 20:19] LABS: APPEARANCE,URINE SL CLOUDY (CLEAR); BILIRUBIN,URINE NEGATIVE (NEGATIVE); BLOOD, URINE TRACE-L (NEGATIVE); COLOR,URINE YELLOW (YELLOW); LEUKOCYTE ESTERASE ,URINE NEGATIVE (NEGATIVE); NITRITE, URINE NEGATIVE (NEGATIVE); UGLUCOSE NEGATIVE (NEGATIVE)
--- NOTE | 2019-10-02 20:30 | NUR ---
US AT BEDSIDE.
--- NOTE | 2019-10-02 21:11 | NUR ---
DUE MEDS ADMINISTERED, PT TOLERATED WELL, NO DISTRESS NOTED, CALL LIGHT WITHIN REACH, WILL CONTINUE TO MONITOR.
--- NOTE | 2019-10-02 23:46 | NUR ---
DUE MEDICATION ADMINISTERED, V/S TAKEN, WNL, CALL LIGHT WITHIN REACH, WILL CONTINUE TO MONITOR.
[2019-10-03] VITALS: BP 135/69
--- NOTE | 2019-10-03 01:18 | NUR ---
PT RESTING, NO DISTRESS NOTED, CALL LIGHT WITHIN REACH, WILL CONTINUE TO MONITOR.
--- NOTE | 2019-10-03 04:44 | NUR ---
PT RESTLESS, NO DISTRESS NOTED, BOLT SAWYER CHANGING PT, PT DID A BM. CALL LIGHT WITHIN REACH, WILL CONTINUE TO MONITOR.
[2019-10-03] MEDS: PIPERACILLIN/TAZOBACTAM 3.375 GM in DEXTROSE 5% 50 ML IV SCH ×3 (05:17→17:18)
[2019-10-03] MEDS: BLOOD GLUCOSE MONITORING 1 DEV DEV FS SCH ×3 (06:04→17:21)
[2019-10-03 06:46] LABS: HEMATOCRIT 27.7 % (36-52); HEMOGLOBIN 8.3 g/dL (12.0-18.0); MEAN CORPUSCULAR HEMOGLOBIN 27 pg (27-31); MEAN CORPUSCULAR HGB CONC 30 g/dL (33-37); MEAN CORPUSCULAR VOLUME 89.7 fL (80-94); PLATELET COUNT (AUTO) 204 K/uL (140-450); RED BLOOD CELL COUNT(AUTO) 3.09 MIL/uL (4.20-6.10); RED CELL DISTRIBUTION WIDTH 19.1 % (11.6-13.7)
[2019-10-03 07:06] LABS: ANION GAP 14.5 (8-16); CARBON DIOXIDE 21.7 mmol/L (21-32); CHLORIDE 118 mmol/L (98-107); GLUCOSE 104 mg/dL (74-106); POTASSIUM 3.2 mmol/L (3.5-5.1); SODIUM SERUM 151 mmol/L (136-145); UREA NITROGEN, BLOOD 13 mg/dL (7-18)
[2019-10-03 07:15] LABS: PHOSPHORUS 3.7 mg/dL (2.5-4.9)
--- NOTE | 2019-10-03 07:21 | NUR ---
ENDORSED PT TO DAY SHIFT NURSE LYN RN, PT STABLE, NO DISTRESS NOTED, CALL LIGHT WITHIN REACH.
--- NOTE | 2019-10-03 07:22 | NUR ---
RECEIVED REPORT FROM NIGHT NURSE. PATIENT LYING DOWN IN BED, SLEEPING AROUSABLE BY VOICE. NO DISTRESS NOTED. DENIES ANY PAIN. FLACC 0. RESPIRATIONS EVEN, UNLABORED, ON O2 2L/MIN VIA NC. IV SITE INTACT, PATENT, AND INFUSING IVF PER MD ORDERS. ABDOMEN SOFT, NON-DISTENDED. REVIEWED PLAN OF CARE WITH PATIENT. PATIENT VERBALIZED UNDERSTANDING. SAFETY MEASURES IN PLACE, CALL LIGHT WITHIN REACH. WILL CONTINUE TO MONITOR.
[2019-10-03 07:26] LABS: WHITE BLOOD COUNT (AUTO) 33.5 K/uL (4.8-10.8)
[2019-10-03 07:27] LABS: LYMPHOCYTES % (MANUAL) 2 % (20-46); MONOCYTES % (MANUAL) 3 % (5-12)
[2019-10-03 08:00] VITALS: BP 131/57
[2019-10-03] MEDS: FERROUS SULFATE 325 MG TABEC PO SCH ×2 (09:19→17:16)
[2019-10-03] MEDS: LACTOBACILLUS RHAMNOSUS GG 1 EACH CAP PO SCH (09:19)
[2019-10-03] MEDS: ASCORBIC ACID 500 MG TAB PO SCH (09:20)
--- NOTE | 2019-10-03 10:14 | NUR ---
SCREEN FOR LOW NGA SCALE AT RISK, CONTINUE TO FOLLOW PRESSURE ULCER PREVENTION INTERVENTIONS. -TURN AND REPOSITION PATIENT Q 2H -ASSESS AND MONITOR SKIN CONDITION DURING POSITION CHANGE -OFFLOAD BILATERAL HEELS BY PLACING PILLOWS UNDER CALVES AT ALL TIMES, UNLESS OTHERWISE CONTRAINDICATED -PRESSURE REDISTRIBUTION BY PLACING PILLOWS AND OFFLOADING SACRALCOCCYX -KEEP SKIN CLEAN AND DRY AT ALL TIMES.
[2019-10-03] MEDS: NACL 0.9% 1,000 ML IV SCH (11:48)
[2019-10-03] MEDS ORDERED: POTASSIUM CHLORIDE 10 MEQ TABER PO SCH (12:30)
--- NOTE | 2019-10-03 14:20 | NUR ---
PATIENT LYING DOWN IN BED SLEEPING, AROUSABLE BY VOICE. NO DISTRESS NOTED. FLACC 0. SCHEDULED MEDICATIONS DUE GIVEN. WILL CONTINUE TO MONITOR.
--- NOTE | 2019-10-03 14:47 | NUR ---
10/03/19 RD FOLLOW UP COMPLETED PLEASE REFER TO NUTRITION ASSESSMENT UNDER CARE ACTIVITY FOR ESTIMATED NUTRITIONAL NEEDS. 1. CONTINUE PUREE DIET AND ENSURE TID TOLERATED 2. CONTINUE TO PROVIDE FEEDING ASSISTANCE WITH MEALS 3. ENCOURAGE INCREASING PO INTAKE 4. RD TO FOLLOW-UP 2-3 DAYS, HIGH RISK [place], [place]
[2019-10-03] MEDS ORDERED: MORP2SOL18 IVP (15:31)
[2019-10-03] MEDS ORDERED: ATI2I IM/IVP (15:31)
[2019-10-03] MEDS ORDERED: POTA10TE30 PO (15:31)
[2019-10-03 16:00] VITALS: BP 126/67
--- NOTE | 2019-10-03 16:38 | NUR ---
DR. VILLARREAL ORDERED CDIFF, PATIENT HAD LOOSE STOOL EARLIER TODAY, BUT HAD ANOTHER BM RIGHT NOW WHICH WAS MUSHY, SOFT. CALLED DR. VILLARREAL AND INFORMED HIM OF MUSHY, SOFT STOOL. PER DR. VILLARREAL, HE STILL WANTS TO SEND THE STOOL TO CHECK FOR CDIFF. TIRE MANAGER, HÉCTOR AWARE. WILL CONTINUE TO MONITOR.
--- NOTE | 2019-10-03 17:31 | NUR ---
PITER MODELING TEACHER CALLED FOR REPORT. GAVE REPORT TO RN AND ANSWERED ALL OF HER QUESTIONS REGARDING PATIENT.
[2019-10-03] MEDS ORDERED: VANCOMYCIN 500 MG VIAL PO SCH (18:00)
[2019-10-03] MEDS ORDERED: PHARMACY COMMENTS MC SCH (18:00)
--- NOTE | 2019-10-03 18:50 | NUR ---
DISCHARGE INSTRUCTIONS GIVEN TO PATIENT, UNABLE TO COMPREHEND. JAQUELIN BOLANOS NURSE REPORT ALREADY GIVEN. WILL CONTINUE TO MONITOR.
--- NOTE | 2019-10-03 18:52 | NUR ---
CALLED JAQUELIN BOLANOS AND GAVE REPORT TO VIV MAK REGARDING PATIENT TRANSFER AND ON HOSPICE CARE. ANSWERED ALL OF RN'S QUESTION REGARDING TRANSFER. NOTIFIED AUBREE OF PICKUP TIME OF 2029 BY [facility] TRAN[facility]. [facility]. CALLED AND NOTIFIED FAMILY MEMBER HERMANN JASON AND NOTIFIED HER OF TRANSPORT TO [facility] LATER TONIGHT AT 2030. HERMANN VERBALIZED COMPLETE UNDERSTANDING.
--- NOTE | 2019-10-03 19:20 | NUR ---
GAVE REPORT TO WORT EXTRACTOR NURSE FOR CONTINUITY OF CARE. PATIENT IN STABLE CONDITION.
--- NOTE | 2019-10-03 19:20 | NUR ---
RECIEVED PT SLEEPING , BUT AROUSABLE BY SOUNDS AND TOUCH , ON RESTARINT BUT COMFORTABLE LYING OB BED , NO ACUTE DISTRESS NOTED AT THIS TIME , WITH PICC LINE INTACT AND PATENT - FOR DISCHARGE TODAY WITH PICC LINE ENDORSE TO BY LYN TORRES ( NOD) HE SAID ALL DISCHARGE PAPERS ALREADY PRINTED AND DONE - JUST WAITING TO IT SECURITY CONSULTANT BY EMS . PLAN OF CARE DISCUSSED BUT POOR UNDERSTANDING DUE TO MENTAL STATUS . OPN SAFETY /FALL PRECAUTION PROTOCOL - CALL LIGHT WITHIN REACH - WILL CONT. TO MONITOR.
[2019-10-03] MEDS ORDERED: VANCOMYCIN 750 MG in DEXTROSE 5% 250 ML IV SCH (20:00)
--- NOTE | 2019-10-03 21:55 | NUR ---
WHITE SOURER BY EMS WITH STABLE CONDITION . WITH PICC LINE .
== END 2019-10-03 21:25 | disposition hospice, inpatient (51) | DRG 864 ==
LOC: MED 18:47 → MTU 22:08
PROVIDERS: ADMIT General Practice; ATTEND General Practice
PROC: 02HV33Z Insertion of Infusion Device into Superior Vena Cava, Percutaneous Approach (ICD-10-PCS; 2019-09-28)
PROC: 00JU3ZZ Inspection of Spinal Canal, Percutaneous Approach (ICD-10-PCS; principal; 2019-09-29)
PROC: 009U3ZX Drainage of Spinal Canal, Percutaneous Approach, Diagnostic (ICD-10-PCS; 2019-09-30)
DX: R50.9 Fever, unspecified (principal); E43 Unspecified severe protein-calorie malnutrition; G93.41 Metabolic encephalopathy; R65.10 Systemic inflammatory response syndrome (SIRS) of non-infectious origin without acute organ dysfunction; C79.51 Secondary malignant neoplasm of bone; C61 Malignant neoplasm of prostate; E83.51 Hypocalcemia; E87.6 Hypokalemia; D63.8 Anemia in other chronic diseases classified elsewhere; F03.90 Unspecified dementia, unspecified severity, without behavioral disturbance, psychotic disturbance, mood disturbance, and anxiety; Z51.5 Encounter for palliative care; R62.7 Adult failure to thrive; M62.50 Muscle wasting and atrophy, not elsewhere classified, unspecified site; Z68.24 Body mass index [BMI] 24.0-24.9, adult; Z78.1 Physical restraint status
CPT/HCPCS: 36415; 70450; 71045; 76770; 76856; 77003; 80048; 80053; 81003; 82140; 82607; 82728; 82746; 82948; 83036; 83540; 83605; 83690; 83735; 83880; 84100; 84134; 84154; 84157; 84443; 84484; 85025; 85045; 85610; 85730; 87040; 87070; 87081; 87086; 87899; 93005; 96365; 96367; 97110; 97116; 97161-GP; 97530; 99285; C1751; C1758; J1644; J1815; J1956; J2001; J2060; J2270; J2543; J2916; J3370; J3480; J7030; J7060; Q0092